=== PATIENT | male | born 1950 | race Caucasian/White ===

== ENCOUNTER → 2016-11-05 | Outpatient (CLI) | payer MEDICARE, OTHER ==
[~2016-11-05] MED LIST: BYST10TA2 PO; CRES20TA PO; FISH120012 PO; TRIC145T OR; lantus insulin SC; novolog 70/30 SC
[2016-11-05 13:23] LABS: MEAN CORPUSCULAR HEMOGLOBIN 31.9 pg (27.0-33.0); MEAN CORPUSCULAR HGB CONC 33.5 g/dl (32.0-36.5); MEAN CORPUSCULAR VOLUME 95.1 fl (80.0-96.0); RED CELL DISTRIBUTION WIDTH 13.4 % (11.5-14.5); WHITE BLOOD COUNT 7.2 K/mm3 (4.0-10.0)
[2016-11-05 13:49] LABS: ALBUMIN 3.9 GM/DL (3.2-5.2); ALBUMIN/GLOBULIN RATIO 1.22 (1.00-1.93); BILIRUBIN,TOTAL 0.8 MG/DL (0.2-1.0); CALCIUM LEVEL 9.1 MG/DL (8.8-10.2); CREATININE FOR GFR 1.74 MG/DL (0.70-1.30); GLOMERULAR FILTRATION RATE 42.1 (>49); TOTAL PROTEIN 7.1 GM/DL (6.4-8.2)
== END ==
LOC: M WUC 09:30
PROVIDERS: ATTEND Family Medicine
DX: R53.83 Other fatigue (principal); Z79.899 Other long term (current) drug therapy; Z85.51 Personal history of malignant neoplasm of bladder

== ENCOUNTER → 2016-11-05 | Outpatient (REF) | payer MEDICARE, OTHER | LOC: M SMT 17:17 | PROVIDERS: ATTEND Urology | DX: C67.9 Malignant neoplasm of bladder, unspecified (principal) ==

== ENCOUNTER → 2016-11-13 | Outpatient (CLI) | payer MEDICARE, OTHER ==
[2016-11-16 00:11] LABS: Lyme Disease IgG/IgM Antibodie <0.91 ISR (0.00-0.90); Lyme Disease IgM Ab Quantitati <0.80 index (0.00-0.79)
== END ==
LOC: M WUC 14:32
PROVIDERS: ATTEND Family Medicine
DX: M19.90 Unspecified osteoarthritis, unspecified site (principal)

== ENCOUNTER → 2017-01-15 | Outpatient (CLI) | payer MEDICARE, OTHER ==
[2017-01-15 11:20] LABS: IMMUNOGLOBULIN A 84.5 MG/DL (70-400); IMMUNOGLOBULIN M 23.4 MG/DL (40-230)
== END ==
LOC: M LAB 09:36
PROVIDERS: ATTEND Allergy & Immunology
DX: J30.1 Allergic rhinitis due to pollen (principal); J30.2 Other seasonal allergic rhinitis

== ENCOUNTER → 2017-01-15 | Outpatient (CLI) | payer MEDICARE, OTHER ==
[2017-01-15 10:33] LABS: INR 0.96
[2017-01-15 10:34] LABS: MEAN CORPUSCULAR HEMOGLOBIN 32.8 pg (27.0-33.0); MEAN CORPUSCULAR VOLUME 93.5 fl (80.0-96.0); RED CELL DISTRIBUTION WIDTH 13.2 % (11.5-14.5); WHITE BLOOD COUNT 5.3 K/mm3 (4.0-10.0)
--- NOTE | 2017-01-15 10:52 | REP ---
PA and lateral chest: Comparison is 02/22/2014. The lung jernigan are clear. The cardiac size is normal The debby, mediastinum, and bony thorax are unremarkable. Impression: Negative PA and lateral chest. Signed by Cristopher Martinez MD 01/15/2017 10:44 A
[2017-01-15 10:58] LABS: ALBUMIN 4.2 GM/DL (3.2-5.2); ALKALINE PHOSPHATASE 105 U/L (45-117); ALT/SGPT 90 U/L (12-78); ANION GAP 6 MEQ/L (8-16); AST/SGOT 42 U/L (15-37); BILIRUBIN,TOTAL 0.8 MG/DL (0.2-1.0); BLOOD UREA NITROGEN 20 MG/DL (7-18); CALCIUM LEVEL 9.2 MG/DL (8.8-10.2); CARBON DIOXIDE LEVEL 30 MEQ/L (21-32); CHLORIDE LEVEL 103 MEQ/L (98-107); CHOLESTEROL LEVEL 272 MG/DL (<200); GLUCOSE, FASTING 104 MG/DL (80-110); SODIUM LEVEL 139 MEQ/L (136-145); TRIGLYCERIDES LEVEL 406 MG/DL (<150)
--- NOTE | 2017-01-15 23:01 | ECGEPIP ---
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 No PVCs compared with 02/22/2014. Electronically Signed On 01-15-2017 23:01:19 EDT by Benton Membreno
== END ==
LOC: M LAB 09:41
PROVIDERS: ATTEND Family Medicine
DX: Z01.818 Encounter for other preprocedural examination (principal); I10 Essential (primary) hypertension; I45.10 Unspecified right bundle-branch block; Z79.01 Long term (current) use of anticoagulants; Z79.899 Other long term (current) drug therapy; J30.1 Allergic rhinitis due to pollen; J30.2 Other seasonal allergic rhinitis

== ENCOUNTER → 2017-05-06 | Outpatient (REF) | payer MEDICARE, OTHER ==
[~2017-05-06] MED LIST changes: -TRIC145T OR; +TRIC145T22 OR
== END ==
LOC: M SMT 13:12
PROVIDERS: ATTEND Urology
DX: Z85.51 Personal history of malignant neoplasm of bladder (principal)

== ENCOUNTER 2017-07-07 20:08 | Emergency (ER) | payer MEDICARE, OTHER ==
[~2017-07-07] VITALS: Ht 172.7 cm; Wt 108.5 kg
[2017-07-07] MEDS ORDERED: ASPIRIN 81 MG CHEW TABLET PO ONE (21:30)
[2017-07-07 22:35] LABS: INR 0.89
[2017-07-07 22:42] LABS: BASO % 0.4 % (0.0-1.0); EOS # 0.1 K/mm3 (0.0-0.50); EOS % 1.6 % (0.0-3.0); LARGE UNSTAINED CELL # 0.1 K/mm3 (0.0-0.4); LARGE UNSTAINED CELL % 1.6 % (0.0-4.0); LYMPH # 0.8 K/mm3 (1.5-4.5); MEAN CORPUSCULAR HEMOGLOBIN 34.6 pg (27.0-33.0); MEAN CORPUSCULAR VOLUME 92.3 fl (80.0-96.0); MONO # 0.3 K/mm3 (0.0-0.8); MONO % 5.2 % (0.0-5.0); NEUTROPHILS # 5.1 K/mm3 (1.8-7.7); NEUTROPHILS % 79.2 % (36.0-66.0); PLATELET COUNT, AUTOMATED 161 k/mm3 (150-450); RED CELL DISTRIBUTION WIDTH 12.6 % (11.5-14.5); WHITE BLOOD COUNT 6.4 K/mm3 (4.0-10.0)
[2017-07-07 22:44] LABS: ALBUMIN 4.3 GM/DL (3.2-5.2); ALBUMIN/GLOBULIN RATIO 1.39 (1.00-1.93); BILIRUBIN,DIRECT 0.2 MG/DL (0.0-0.2); BILIRUBIN,TOTAL 0.6 MG/DL (0.2-1.0); CALCIUM LEVEL 9.5 MG/DL (8.8-10.2); CREATININE FOR GFR 1.59 MG/DL (0.70-1.30); FREE T4 0.88 NG/DL (0.76-1.46); GLOMERULAR FILTRATION RATE 46.7 (>49); POTASSIUM SERUM 4.5 MEQ/L (3.5-5.1); TOTAL PROTEIN 7.4 GM/DL (6.4-8.2)
[2017-07-07 22:46] LABS: MEAN CORPUSCULAR HGB CONC 36.7 g/dl (32.0-36.5)
[2017-07-07] MEDS ORDERED: SODIUM CHLORIDE 0.9% 1000 ML IV ONE (23:00)
[2017-07-07] MEDS ORDERED: LEVEMIR (INSULIN DETEMIR) 1 UNITS/0.01ML SC ONE (23:00)
[2017-07-08] MEDS ORDERED: HEPARIN DRIP 25,000 UNITS in APPROPRIATE DILUENT 1 EA IV SCH (00:50)
[2017-07-08] MEDS ORDERED: HEPARIN SOD (PORCINE) 5000 UNITS/ML VIAL IV PRN (01:00)
[2017-07-08] MEDS ORDERED: NS 1,000 ML IV SCH (01:00)
[2017-07-08 06:06] VITALS: BP 150/74
--- NOTE | 2017-07-08 08:37 | ECGEPIP ---
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
--- NOTE | 2017-07-08 09:25 | REP ---
CHEST, TWO VIEWS: COMPARISON: 01/15/2017 There is no evidence of acute infiltrate. No pleural effusion is seen. The heart is normal in size. The mediastinal silhouette is unremarkable. The visualized osseous structures are intact. IMPRESSION: No acute pulmonary disease. Signed by Cristopher Vazquez MD 07/08/2017 05:29 P
== END 2017-07-08 06:28 | disposition short-term general hospital (02) ==
LOC: M ED 20:08
DX: I21.4 Non-ST elevation (NSTEMI) myocardial infarction (principal); E11.65 Type 2 diabetes mellitus with hyperglycemia; I45.10 Unspecified right bundle-branch block; I44.4 Left anterior fascicular block; Z79.4 Long term (current) use of insulin; Z79.899 Other long term (current) drug therapy; Z88.0 Allergy status to penicillin

== ENCOUNTER 2017-09-11 10:44 | Outpatient (RCR) | payer MEDICARE, OTHER | END 2017-09-12 | LOC: M CR 10:44 | PROVIDERS: ATTEND Internal Medicine Cardiovascular Disease | DX: Z51.81 Encounter for therapeutic drug level monitoring (principal); Z95.1 Presence of aortocoronary bypass graft ==

== ENCOUNTER 2017-09-13 09:17 | Outpatient (RCR) | payer MEDICARE, OTHER | END 2017-10-13 | LOC: M CR 09:17 | DX: Z95.1 Presence of aortocoronary bypass graft (principal) | CPT/HCPCS: 93798 ==

== ENCOUNTER 2017-10-15 08:47 | Outpatient (RCR) | payer MEDICARE, OTHER ==
[2017-10-28 09:15] LABS: BEDSIDE GLUCOSE 172 MG/DL (80-115)
[2017-10-28 14:04] LABS: BEDSIDE GLUCOSE 171 MG/DL (80-115)
== END 2017-11-13 ==
LOC: M CR 08:47
DX: Z51.89 Encounter for other specified aftercare (principal); Z95.1 Presence of aortocoronary bypass graft
CPT/HCPCS: 93798

== ENCOUNTER 2017-11-14 08:57 | Outpatient (RCR) | payer MEDICARE, OTHER | END 2017-12-11 | LOC: M CR 08:57 | DX: Z51.89 Encounter for other specified aftercare (principal); Z95.1 Presence of aortocoronary bypass graft | CPT/HCPCS: 93798 ==

== ENCOUNTER → 2018-08-01 | Outpatient (CLI) | payer MEDICARE, OTHER ==
[2018-08-01 13:16] LABS: ESTIMATED AVERAGE GLUCOSE 220 MG/DL (60-110); HEMOGLOBIN A1c 9.3 %
[2018-08-01 13:40] LABS: HEMATOCRIT 43.4 % (42.0-52.0); HEMOGLOBIN 14.7 g/dl (13.5-17.5); MEAN CORPUSCULAR HEMOGLOBIN 32.5 pg (27.0-33.0); MEAN CORPUSCULAR HGB CONC 33.9 g/dl (32.0-36.5); PLATELET COUNT, AUTOMATED 127 10^3/uL (150-450); RED BLOOD COUNT 4.52 10^6/uL (4.30-6.10); RED CELL DISTRIBUTION WIDTH 11.9 % (11.5-14.5); WHITE BLOOD COUNT 4.8 10^3/uL (4.0-10.0)
[2018-08-01 13:43] LABS: ALBUMIN/GLOBULIN RATIO 1.43 (1.00-1.93); ALKALINE PHOSPHATASE 136 U/L (45-117); ALT/SGPT 137 U/L (12-78); ANION GAP 11 MEQ/L (8-16); AST/SGOT 68 U/L (7-37); BILIRUBIN,TOTAL 0.7 MG/DL (0.2-1.0); BLOOD UREA NITROGEN 15 MG/DL (7-18); CARBON DIOXIDE LEVEL 27 MEQ/L (21-32); CHLORIDE LEVEL 100 MEQ/L (98-107); CHOLESTEROL LEVEL 187 MG/DL (<200); CHOLESTEROL RISK RATIO 4.794 (<5); CREATININE FOR GFR 1.31 MG/DL (0.70-1.30); GLOMERULAR FILTRATION RATE 58.3 (>49); GLUCOSE, FASTING 223 MG/DL (70-100); HDL CHOLESTEROL 39 MG/DL (>40); LDL CHOLESTEROL 89 MG/DL (<100); NON-HDL-C 148 MG/DL; POTASSIUM SERUM 5.1 MEQ/L (3.5-5.1); PROSTATIC SPECIFIC AG MONITOR 0.67 NG/ML (< 4.0); SODIUM LEVEL 138 MEQ/L (136-145); TOTAL PROTEIN 6.8 GM/DL (6.4-8.2); TRIGLYCERIDES LEVEL 297 MG/DL (<150)
== END ==
LOC: M WUC 08:38
DX: N40.1 Benign prostatic hyperplasia with lower urinary tract symptoms (principal); E11.9 Type 2 diabetes mellitus without complications; I10 Essential (primary) hypertension
CPT/HCPCS: 84443

== ENCOUNTER → 2018-11-05 | Outpatient (CLI) | payer MEDICARE, OTHER ==
--- NOTE | 2018-11-05 12:29 | REP ---
LUMBAR SPINE, FIVE VIEWS: HISTORY: Back pain. There is no acute fracture or subluxation. The lumbar intervertebral discs are decreased in height consistent with disc degeneration. Osteophytes are present on L2 through L5. There is narrowing of the L3-4 through L5-S1 facet joints. IMPRESSION: Degenerative change as described above. Electronically Signed by Jan Abrams MD 11/05/2018 12:34 P
--- NOTE | 2018-11-05 12:31 | REP ---
SACRUM AND COCCYX, TWO VIEWS: HISTORY: Back pain. There is no acute fracture. The lumbar intervertebral discs are decreased in height consistent with disc degeneration. Osteophytes are present on L2 through L5. There are 7 mm of posterior displacement of the coccyx with respect to the sacrum. IMPRESSION: Degenerative change as described above. Electronically Signed by Jan Abrams MD 11/05/2018 12:34 P
--- NOTE | 2018-11-05 12:34 | REP ---
RIGHT HIP, AP PELVIS, THREE VIEWS: HISTORY: Right hip pain. There is no acute fracture or dislocation. There is minimal narrowing of the joint spaces with associated sclerosis. IMPRESSION: There is no acute fracture or dislocation. Electronically Signed by Jan Abrams MD 11/05/2018 12:36 P
== END ==
LOC: M RAD 11:38
PROVIDERS: ATTEND Family Medicine
DX: M25.78 Osteophyte, vertebrae (principal); M25.551 Pain in right hip; M54.5 Low back pain; W00.9XXA Unspecified fall due to ice and snow, initial encounter; Y92.89 Other specified places as the place of occurrence of the external cause; Y93.89 Activity, other specified; Y99.8 Other external cause status

== ENCOUNTER → 2020-06-22 | Outpatient (CLI) | payer MEDICARE, OTHER ==
[~2020-06-22] MED LIST changes: +ALLO100T PO; +ASPI-255 PO; +ATOR40TA75 PO; -CRES20TA PO; +CRES20TA2 PO; +FURO40TA2 PO; +GABA-1171 PO; +LISI-542 PO; +OXYB5TAB10 PO
[2020-06-22 10:58] LABS: HEMATOCRIT 40.1 % (42.0-52.0); HEMOGLOBIN 13.5 g/dl (13.5-17.5); MEAN CORPUSCULAR HEMOGLOBIN 32.8 pg (27.0-33.0); MEAN CORPUSCULAR HGB CONC 33.7 g/dl (32.0-36.5); MEAN CORPUSCULAR VOLUME 97.3 fl (80.0-96.0); PLATELET COUNT, AUTOMATED 124 10^3/uL (150-450); RED BLOOD COUNT 4.12 10^6/uL (4.30-6.10); WHITE BLOOD COUNT 4.5 10^3/uL (4.0-10.0)
[2020-06-22 11:09] LABS: INR 1.03; PROTHROMBIN TIME 13.7 SECONDS (11.8-14.0)
[2020-06-22 11:37] LABS: BILIRUBIN,TOTAL 0.6 MG/DL (0.2-1.0); CALCIUM LEVEL 8.6 MG/DL (8.8-10.2); CHOLESTEROL RISK RATIO 3.88 (<5); CREATININE FOR GFR 1.55 MG/DL (0.70-1.30); GLOMERULAR FILTRATION RATE 47.7 (>49); POTASSIUM SERUM 4.5 MEQ/L (3.5-5.1); PROSTATIC SPECIFIC AG MONITOR 0.79 NG/ML (< 4.00); THYROID STIMULATING HORMONE 1.57 uIU/ML (0.358-3.740); TOTAL PROTEIN 6.9 GM/DL (6.4-8.2)
--- NOTE | 2020-07-02 18:53 | ECGEPIP ---
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
--- NOTE | 2020-07-12 07:10 | REP ---
CHEST X-RAY CLINICAL: History of hypertension. Preoperative assessment. TECHNIQUE: PA and lateral. COMPARISON: 07/07/2017. 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 Mild cardiomegaly is again suggested. Mildly increased pulmonary vasculature suggests pulmonary vascular congestion/hypertension. No focal consolidation, effusion, or pneumothorax. Skeletal structures intact. IMPRESSION: Chronic appearing changes as noted above. No focal consolidation or effusion. MTDD
== END ==
LOC: M LAB 09:16
PROVIDERS: ATTEND Family Medicine
DX: Z01.818 Encounter for other preprocedural examination (principal); I44.0 Atrioventricular block, first degree; R94.31 Abnormal electrocardiogram [ECG] [EKG]; R93.89 Abnormal findings on diagnostic imaging of other specified body structures; E11.9 Type 2 diabetes mellitus without complications; I10 Essential (primary) hypertension; Z79.899 Other long term (current) drug therapy; Z12.5 Encounter for screening for malignant neoplasm of prostate

== ENCOUNTER → 2021-04-21 | Outpatient (CLI) | payer MEDICARE, OTHER ==
[~2021-04-21] MED LIST changes: -LISI-542 PO; +LISI5TAB11 PO
[2021-04-21 10:30] LABS: HEMATOCRIT 40.4 % (42.0-52.0); HEMOGLOBIN 12.9 g/dl (13.5-17.5); MEAN CORPUSCULAR HEMOGLOBIN 31.7 pg (27.0-33.0); MEAN CORPUSCULAR HGB CONC 31.9 g/dl (32.0-36.5); MEAN CORPUSCULAR VOLUME 99.3 fl (80.0-96.0); PLATELET COUNT, AUTOMATED 113 10^3/uL (150-450); RED BLOOD COUNT 4.07 10^6/uL (4.30-6.10); WHITE BLOOD COUNT 4.6 10^3/uL (4.0-10.0)
[2021-04-21 10:47] LABS: INR 0.95; PROTHROMBIN TIME 12.9 SECONDS (12.5-14.3)
[2021-04-21 11:05] LABS: ALBUMIN 4.2 GM/DL (3.2-5.2); BILIRUBIN,TOTAL 0.4 MG/DL (0.2-1.0); CALCIUM LEVEL 9.8 MG/DL (8.8-10.2); CREATININE FOR GFR 1.68 MG/DL (0.70-1.30); GLOMERULAR FILTRATION RATE 43.3 (>49); POTASSIUM SERUM 4.7 MEQ/L (3.5-5.1)
[2021-04-21 11:52] LABS: ERYTHROCYTE SEDIMENTATION RATE 9 mm/hr (0-20)
== END ==
LOC: M LAB 08:15
PROVIDERS: ATTEND Orthopaedic Surgery
DX: M17.12 Unilateral primary osteoarthritis, left knee (principal); Z01.818 Encounter for other preprocedural examination

== ENCOUNTER → 2021-05-02 | Outpatient (REF) | payer MEDICARE, OTHER ==
[~2021-05-02] MED LIST changes: +LISI-898 PO; -LISI5TAB11 PO
== END ==
LOC: M LAB REF 12:47
PROVIDERS: ATTEND Nurse Practitioner Family
DX: E83.41 Hypermagnesemia (principal)

== ENCOUNTER → 2021-06-02 | Outpatient (CLI) | payer MEDICARE, OTHER | LOC: M LABSMTC 13:05 | PROVIDERS: ATTEND Family Medicine | DX: Z20.828 Contact with and (suspected) exposure to other viral communicable diseases (principal); Z11.59 Encounter for screening for other viral diseases | CPT/HCPCS: C9803; U0003 ==

== ENCOUNTER → 2021-08-02 | Outpatient (CLI) | payer MEDICARE, OTHER ==
--- NOTE | 2021-08-02 11:08 | REP ---
INDICATION: SWELLING, PAIN. COMPARISON: None. TECHNIQUE: Multiple ultrasonographic images of the deep venous structures of the left lower extremity were obtained from the inguinal ligament to the ankle. Venous compression techniques, color doppler imaging, and augmentation techniques were also obtained where appropriate. As per the ACR guidelines the anterior tibial vein can not be effectively evaluated. Only compression techniques in the calf on the peroneal and posterior tibial veins was attempted/performed. FINDINGS: There is no abnormal echogenic material seen within any of the visualized deep venous structures that would suggest acute thrombosis. Coaptation is unremarkable throughout. Doppler interrogation shows an expected response to respiratory variability and augmentation in the thigh. Compression techniques in the calf were unobtainable. The color flow images show what appears to be a normal vascular pattern throughout the thigh. IMPRESSION: There is no ultrasonographic evidence of deep venous thrombosis involving any of the visualized deep venous structures of the left lower extremity as described above. Due to technical parameters calf vein DVT can not be ruled out. <Electronically signed by Shane Kraus > 08/02/21 [id number]
== END ==
LOC: M RAD 10:30
PROVIDERS: ATTEND Physician Assistant Surgical
DX: M79.662 Pain in left lower leg (principal)

== ENCOUNTER → 2021-08-04 | Outpatient (CLI) | payer MEDICARE, OTHER ==
[2021-08-04 08:37] LABS: HEMATOCRIT 28.6 % (42.0-52.0); HEMOGLOBIN 8.6 g/dl (13.5-17.5); MEAN CORPUSCULAR HEMOGLOBIN 30.3 pg (27.0-33.0); MEAN CORPUSCULAR HGB CONC 30.1 g/dl (32.0-36.5); MEAN CORPUSCULAR VOLUME 100.7 fl (80.0-96.0); PLATELET COUNT, AUTOMATED 126 10^3/uL (150-450); RED BLOOD COUNT 2.84 10^6/uL (4.30-6.10); WHITE BLOOD COUNT 3.6 10^3/uL (4.0-10.0)
[2021-08-04 08:50] LABS: HEMOGLOBIN A1c 6.6 %
[2021-08-04 09:05] LABS: ALBUMIN 3.7 GM/DL (3.2-5.2); BILIRUBIN,TOTAL 0.5 MG/DL (0.2-1.0); CHOLESTEROL RISK RATIO 2.59 (<5); CREATININE FOR GFR 1.58 MG/DL (0.70-1.30); GLOMERULAR FILTRATION RATE 46.5 (>49); POTASSIUM SERUM 4.8 MEQ/L (3.5-5.1); PROSTATIC SPECIFIC AG MONITOR 1.01 NG/ML (< 4.00); THYROID STIMULATING HORMONE 1.41 uIU/ML (0.358-3.740); TOTAL PROTEIN 6.7 GM/DL (6.4-8.2)
--- NOTE | 2021-08-04 09:28 | REP ---
INDICATION: HYPERTENSION COMPARISON: None. TECHNIQUE: PA/Lateral FINDINGS: Lungs: Clear, no infiltrate. Heart: There is mild cardiomegaly. Mediastinum: Mediastinal silhouette unremarkable. Pleural angles: Unremarkable.. Bones and soft tissues: There are mild degenerative changes of the spine. Multiple sternal wires are present. IMPRESSION: No acute pulmonary disease. Mild cardiomegaly. <Electronically signed by Cristopher Vazquez > 08/04/21 0924
--- NOTE | 2021-08-04 09:55 | ECGEPIP ---
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
== END ==
LOC: M LAB 07:12
PROVIDERS: ATTEND Family Medicine
DX: I10 Essential (primary) hypertension (principal); E03.9 Hypothyroidism, unspecified; E11.9 Type 2 diabetes mellitus without complications

== ENCOUNTER → 2021-08-09 | Outpatient (CLI) | payer MEDICARE, OTHER ==
--- NOTE | 2021-08-09 13:22 | REP ---
INDICATION: LT CAROTID BRUIT. COMPARISON: None. TECHNIQUE: 2D and pulse color Doppler ultrasound evaluation of the carotid arteries was performed. FINDINGS: There is minimal soft plaque noted in both carotid bulbs and both proximal internal carotid arteries. There are normal peak systolic flow velocities in both common carotid external carotid and internal carotid arteries. The ICA/CCA ratios are normal. The vertebral artery blood flow is antegrade, bilaterally. IMPRESSION: There is no hemodynamically significant stenosis of either internal carotid artery. <Electronically signed by Venancio Mccartney > 08/09/21 1402
== END ==
LOC: M RAD 12:23
PROVIDERS: ATTEND Family Medicine
DX: I65.22 Occlusion and stenosis of left carotid artery (principal)

== ENCOUNTER → 2021-08-25 | Outpatient (CLI) | payer MEDICARE, OTHER ==
[~2021-08-25] MED LIST changes: +E-Z-GAS II EFFERVESCENT PACKET (SODIUM BICARB./CITRIC ACID/SIMETHICONE) As Ordered ONE; +E-Z-HD 98% w/w 340GM SUSP BTL As Ordered ONE; +E-Z-PAQUE 96% w/w SUSP 176GM BTL As Ordered ONE
--- NOTE | 2021-08-25 16:35 | REP ---
INDICATION: ANEMIA. COMPARISON: None. TECHNIQUE: The procedure was performed under the direct supervision of Dr. Vazquez. The images were reviewed with Dr. Vazquez. Liquid barium and gas producing crystals were given in the erect position as well as liquid barium in the prone oblique position in order to perform a double contrast upper GI examination. A combination of fluoroscopy, spot films and last image hold technology was utilized. 2 minutes of fluoro time was utilized for this procedure. FINDINGS: The clip coater film shows no organomegaly or pathological masses. The intestinal gas pattern is non-specific. The oral and pharyngeal stages of deglutition are unremarkable. During esophageal transport there are tertiary waves demonstrated. There is no esophagitis, stricture, mucosal ring or hiatal hernia. Gastroesophageal reflux is not demonstrated on this examination. The stomach joy are normally outlined. The rugal folds are smooth and regular. There is no gastritis neoplasm or ulcer disease. In the post bulbar duodenum there are thickened folds which may represent duodenitis. There is no marsha ulcer identified. There is a small diverticulum in the distal duodenum. The visualized portion of the proximal small bowel appears normal in course and caliber. IMPRESSION: 1. Tertiary waves. 2. There are thickened folds in the post bulbar duodenum which may represent duodenitis. There is no marsha ulcer identified. 3. There is a small diverticulum in the distal duodenum. <Electronically signed by Robe Loyola > 08/25/21 1422 <Electronically signed by Cristopher Vazquez > 08/25/21 1631
== END ==
LOC: M RAD 08:01
PROVIDERS: ATTEND Family Medicine
DX: D64.9 Anemia, unspecified (principal)

== ENCOUNTER → 2021-08-28 | Outpatient (CLI) | payer MEDICARE, OTHER ==
[~2021-08-28] MED LIST changes: -E-Z-GAS II EFFERVESCENT PACKET (SODIUM BICARB./CITRIC ACID/SIMETHICONE) As Ordered ONE; -E-Z-HD 98% w/w 340GM SUSP BTL As Ordered ONE; -E-Z-PAQUE 96% w/w SUSP 176GM BTL As Ordered ONE
[2021-08-28 11:42] LABS: HEMATOCRIT 32.1 % (42.0-52.0); HEMOGLOBIN 9.8 g/dl (13.5-17.5); MEAN CORPUSCULAR HEMOGLOBIN 30.2 pg (27.0-33.0); MEAN CORPUSCULAR HGB CONC 30.5 g/dl (32.0-36.5); MEAN CORPUSCULAR VOLUME 98.8 fl (80.0-96.0); PLATELET COUNT, AUTOMATED 120 10^3/uL (150-450); RED BLOOD COUNT 3.25 10^6/uL (4.30-6.10); WHITE BLOOD COUNT 4.3 10^3/uL (4.0-10.0)
== END ==
LOC: M LAB 10:54
PROVIDERS: ATTEND Family Medicine
DX: D64.9 Anemia, unspecified (principal)

== ENCOUNTER → 2021-10-20 | Outpatient (CLI) | payer MEDICARE, OTHER ==
[~2021-10-20] MED LIST changes: -LISI-898 PO; +LISI5TAB11 PO
[2021-10-20 16:05] LABS: BASO % 0.7 % (0.0-1.0); EOS # 0.1 10^3/uL (0.0-0.5); HEMATOCRIT 42.6 % (42.0-52.0); HEMOGLOBIN 13.5 g/dl (13.5-17.5); LYMPH # 0.8 10^3/uL (1.5-5.0); LYMPH % 18.7 % (24.0-44.0); MEAN CORPUSCULAR HEMOGLOBIN 30.8 pg (27.0-33.0); MEAN CORPUSCULAR HGB CONC 31.7 g/dl (32.0-36.5); MEAN CORPUSCULAR VOLUME 97.3 fl (80.0-96.0); MONO # 0.3 10^3/uL (0.0-0.8); MONO % 6.7 % (2.0-8.0); NEUTROPHILS # 3.1 10^3/uL (1.5-8.5); NEUTROPHILS % 70.7 % (36.0-66.0); PLATELET COUNT, AUTOMATED 116 10^3/uL (150-450); RED BLOOD COUNT 4.38 10^6/uL (4.30-6.10); WHITE BLOOD COUNT 4.3 10^3/uL (4.0-10.0)
[2021-10-20 16:31] LABS: ERYTHROCYTE SEDIMENTATION RATE 6 mm/hr (0-20)
== END ==
LOC: M WUC 10:27
PROVIDERS: ATTEND Orthopaedic Surgery
DX: M79.652 Pain in left thigh (principal); Z96.652 Presence of left artificial knee joint

== ENCOUNTER → 2021-12-21 | Outpatient (CLI) | payer MEDICARE, OTHER ==
[2021-12-21 09:40] LABS: HEMATOCRIT 40.9 % (42.0-52.0); HEMOGLOBIN 13.6 g/dl (13.5-17.5); MEAN CORPUSCULAR HEMOGLOBIN 31.5 pg (27.0-33.0); MEAN CORPUSCULAR HGB CONC 33.3 g/dl (32.0-36.5); MEAN CORPUSCULAR VOLUME 94.7 fl (80.0-96.0); PLATELET COUNT, AUTOMATED 107 10^3/uL (150-450); RED BLOOD COUNT 4.32 10^6/uL (4.30-6.10); WHITE BLOOD COUNT 4.5 10^3/uL (4.0-10.0)
[2021-12-21 10:15] LABS: THYROID STIMULATING HORMONE 1.67 uIU/ML (0.358-3.740)
[2021-12-21 11:17] LABS: HEMOGLOBIN A1c 10.5 %
== END ==
LOC: M LAB 08:53
PROVIDERS: ATTEND Family Medicine
DX: D64.9 Anemia, unspecified (principal); E11.9 Type 2 diabetes mellitus without complications; R53.83 Other fatigue

== ENCOUNTER → 2022-01-08 | Outpatient (CLI) | payer MEDICARE, OTHER ==
[~2022-01-08] MED LIST changes: +INSULANT SC; +NOVO70VL SC
== END ==
LOC: M LABSMTC 09:30
PROVIDERS: ATTEND Anesthesiology
DX: Z01.812 Encounter for preprocedural laboratory examination (principal); Z20.822 Contact with and (suspected) exposure to COVID-19

== ENCOUNTER 2022-01-12 09:53 | Day surgery (SDC) | payer MEDICARE, OTHER ==
[~2022-01-12] VITALS: Ht 172.7 cm; Wt 114.8 kg
[~2022-01-12 09:53] MED LIST changes: +NS 1,000 ML IV ONE
[2022-01-12] MEDS ORDERED: propofoL 200 MG/20 ML VIAL As Ordered ONE (10:49)
[2022-01-12] MEDS ORDERED: LIDOCAINE 2% 100MG/5ML SDV (FOR ANES.) As Ordered ONE (10:49)
[2022-01-12] MEDS ORDERED: fentaNYL 100 MCG/2 ML INJECTION As Ordered ONE (11:31)
[2022-01-12 12:45] VITALS: BP 134/64
== END 2022-01-12 12:55 | disposition home or self-care (01) ==
LOC: M OPP 09:53
PROVIDERS: ATTEND Internal Medicine Gastroenterology
DX: K57.30 Diverticulosis of large intestine without perforation or abscess without bleeding (principal); K64.0 First degree hemorrhoids; D50.9 Iron deficiency anemia, unspecified; K31.89 Other diseases of stomach and duodenum; Z79.4 Long term (current) use of insulin; Z79.899 Other long term (current) drug therapy; Z88.0 Allergy status to penicillin; Z87.891 Personal history of nicotine dependence
CPT/HCPCS: 43239; 45380; 88305; J3010

== ENCOUNTER → 2022-04-03 | Outpatient (CLI) | payer MEDICARE, OTHER ==
[~2022-04-03] MED LIST changes: -NS 1,000 ML IV ONE
== END ==
LOC: M RAD 09:24
PROVIDERS: ATTEND Family Medicine
DX: I11.0 Hypertensive heart disease with heart failure (principal)

== ENCOUNTER → 2022-07-10 | Outpatient (CLI) | payer MEDICARE, OTHER | LOC: M RAD 10:23 | PROVIDERS: ATTEND Physician Assistant | DX: M79.605 Pain in left leg (principal); E11.59 Type 2 diabetes mellitus with other circulatory complications; M79.604 Pain in right leg; I70.203 Unspecified atherosclerosis of native arteries of extremities, bilateral legs ==

== ENCOUNTER → 2022-08-20 | Outpatient (REF) | payer MEDICARE, OTHER | LOC: M LABWUC 11:28 | PROVIDERS: ATTEND Physician Assistant | DX: R06.02 Shortness of breath (principal); R53.83 Other fatigue ==

== ENCOUNTER → 2022-09-19 | Outpatient (CLI) | payer MEDICARE, OTHER ==
[2022-09-19 15:40] LABS: FOLATE 17.68 NG/ML (>5.4)
[2022-09-19 15:59] LABS: PERCENT SATURATION 53.8 % (19.7-50.0)
== END ==
LOC: M PLAIMG 11:29
PROVIDERS: ATTEND Physician Assistant
DX: R06.09 Other forms of dyspnea (principal); D64.9 Anemia, unspecified; Z95.5 Presence of coronary angioplasty implant and graft

== ENCOUNTER → 2022-09-26 | Outpatient (CLI) | payer MEDICARE, OTHER ==
[2022-09-26 11:52] LABS: TOTAL PROTEIN 6.1 GM/DL (6.4-8.2)
== END ==
LOC: M LAB 10:23
PROVIDERS: ATTEND Physician Assistant
DX: D64.9 Anemia, unspecified (principal)